=== PATIENT | male | born 1960 | race African-American/Black ===

== ENCOUNTER 2018-06-30 09:34 | Day surgery (SDC) | payer OTHER ==
[~2018-06-30] VITALS: Ht 185.4 cm; Wt 113.4 kg
[~2018-06-30 09:34] MED LIST: AMIO200T33 PO; DABI150C PO; IOHEXOL 350 MG/ML 100ML IJ ONE; LIDOCAINE 2%HCL (LOCAL ANESTH.) INJ 10ml MDV ONE; LOSA100T25 PO; SPIR25TA8 PO
[2018-06-30] MEDS ORDERED: fentaNYL CITRATE 100 MCG/2 ML VL ONE (12:22)
[2018-06-30] MEDS ORDERED: ANGIOMAX 250 MG VIAL IV ONE (12:22)
[2018-06-30] MEDS ORDERED: VERAPAMIL 2.5MG/ML INJ 2ML VIAL IV ONE (12:22)
[2018-06-30] MEDS ORDERED: SODIUM CHL 0.9% 0 ML ONE (12:23)
[2018-06-30] MEDS ORDERED: MIDAZOLAM HCL 1MG/1ML-2 ML VIAL ONE (12:23)
[2018-06-30] MEDS ORDERED: IODIXANOL 320MG/ML 100ML BTL IV ONE (12:23)
[2018-06-30] MEDS ORDERED: HEPARIN SODIUM (PORCINE) 5000 UNITS/ML 1ML VIAL ONE (13:03)
== END 2018-06-30 15:50 | disposition home or self-care (01) ==
LOC: CATH 09:34
PROVIDERS: ATTEND Internal Medicine
DX: I42.9 Cardiomyopathy, unspecified (principal); I48.91 Unspecified atrial fibrillation; R94.39 Abnormal result of other cardiovascular function study; I11.0 Hypertensive heart disease with heart failure; E78.5 Hyperlipidemia, unspecified; Z88.0 Allergy status to penicillin; Z91.02 Food additives allergy status; Z79.899 Other long term (current) drug therapy; Z82.49 Family history of ischemic heart disease and other diseases of the circulatory system
CPT/HCPCS: 93454; A6257; C1760; C1769; C1894; J1644; J2001; J2250; J3010; J7030; Q9967; 93005; 99152